=== PATIENT | female | born 1995 | race Caucasian/White ===

== ENCOUNTER 2018-08-13 20:52 | Emergency (ER) | payer OTHER ==
[~2018-08-13] VITALS: Ht 157.5 cm; Wt 49.9 kg
[~2018-08-13 20:52] MED LIST: DEPO-PROVER150 MG/M1; SULFAMETHOXAZOL20 ML PO
[2018-08-13 21:05] VITALS: BP 113/72
[2018-08-13] MEDS ORDERED: AMOXICILLIN 50500 MG PO (21:14)
[2018-08-13] MEDS ORDERED: PROAIR HFA8.5 GM INH (21:18)
[2018-08-13] MEDS ORDERED: KEFLEX500 M1 PO ×2 (21:21)
== END 2018-08-13 21:30 | disposition home or self-care (01) ==
LOC: M.ERS 20:52
DX: J02.9 Acute pharyngitis, unspecified (principal); R06.2 Wheezing; Z88.8 Allergy status to other drugs, medicaments and biological substances

== ENCOUNTER 2018-09-18 08:28 | Emergency (ER) | payer OTHER ==
[~2018-09-18] VITALS: Ht 157.5 cm; Wt 50.4 kg
[~2018-09-18 08:28] MED LIST changes: +AMOXICILLIN 50500 MG PO; +KEFLEX500 M1 PO; +PROAIR HFA8.5 GM INH
[2018-09-18 08:46] LABS: ABSOLUTE EOSINOPHILS 0.1 thou/uL (0.0-0.7); ABSOLUTE LYMPHOCYTES 1.8 thou/uL (0.8-5.3); ABSOLUTE MONOCYTES 0.6 thou/uL (0.0-1.2); BASOPHILS 0.6 %; EOSINOPHILS 1.6 %; HEMATOCRIT 40.8 % (37.0-47.0); HEMOGLOBIN 13.7 gm/dL (12.0-15.0); MCH 28.3 pg (26.0-34.0); MCHC 33.7 g/dL (28.0-37.0); MCV 84.1 fL (80.0-100.0); MONOCYTES 9.2 %; MPV 7.7 fl. (7.2-11.1); NUCLEATED RBCS 0 /100WBC; PLATELET COUNT* 256 thou/uL (150-400); POLYS 60.6 %; RBC 4.85 mil/uL (4.20-5.00); RDW-CV 14.5 % (10.5-14.5); WBC 6.6 thou/uL (4.0-11.0)
[2018-09-18 09:09] LABS: CALCIUM 8.8 mg/dL (8.5-10.1); CREATININE 0.7 mg/dL (0.6-1.3); POTASSIUM 3.8 mmol/L (3.5-5.1)
[2018-09-18 09:15] LABS: ALBUMIN 3.8 g/dL (3.4-5.0); TOTAL BILIRUBIN 0.9 mg/dL (<0.1-1.0); TOTAL PROTEIN 7.5 g/dL (6.4-8.2)
[2018-09-18 09:37] VITALS: BP 110/60
--- NOTE | 2018-09-18 18:08 | EKG ---
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
== END 2018-09-18 09:38 | disposition home or self-care (01) ==
LOC: M.ERS 08:28
PROVIDERS: Family Medicine
DX: O26.899 Other specified pregnancy related conditions, unspecified trimester (principal); R07.89 Other chest pain; Z3A.00 Weeks of gestation of pregnancy not specified; Z88.8 Allergy status to other drugs, medicaments and biological substances

== ENCOUNTER 2019-10-31 20:44 | Emergency (ER) | payer OTHER ==
[~2019-10-31] VITALS: Ht 157.5 cm; Wt 52.2 kg
[2019-10-31] MEDS ORDERED: ZOFRAN ODT4 MG PO (21:48)
[2019-10-31 22:05] VITALS: BP 120/79
== END 2019-10-31 22:06 | disposition home or self-care (01) ==
LOC: M.ERS 20:44
DX: A08.4 Viral intestinal infection, unspecified (principal)

== ENCOUNTER 2019-11-13 15:56 | Emergency (ER) | payer OTHER ==
[~2019-11-13] VITALS: Ht 157.5 cm; Wt 50.8 kg
[~2019-11-13 15:56] MED LIST changes: +ZOFRAN ODT4 MG PO
[2019-11-13 16:34] VITALS: BP 112/79
--- NOTE | 2019-11-14 16:44 | EKG ---
[place] [address] ELECTROCARDIOGRAM REPORT Name: TERESA SLOAN Room: 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 : 1995 Requested By: Maria Elena Neville Order Number: [id number] Chantel MD: Benja Covington Measurements Intervals [place] Rate: 107 P: 90 SC: 154 QRS: 71 QRSD: 78 T: 68 QT: 346 QTc: 462 Interpretive Statements Sinus tachycardia Consider left atrial enlargement Low voltage, precordial leads Compared to ECG 09/18/2018 08:33:42 Low QRS voltage now present Electronically Signed On 11-14-2019 16:43:25 CDT by Benja Covington [email or web address] <ELECTRONICALLY SIGNED> By: Benja Covington MD, [facility] 11/14/19 1643 1609 1609 Benja Covington MD, [facility] /EPI
== END 2019-11-13 23:35 | disposition left against medical advice (07) ==
LOC: M.ERS 15:56
DX: R11.2 Nausea with vomiting, unspecified (principal); R07.9 Chest pain, unspecified; Z53.21 Procedure and treatment not carried out due to patient leaving prior to being seen by health care provider

== ENCOUNTER 2020-01-25 01:24 | Emergency (ER) | payer OTHER ==
[~2020-01-25] VITALS: Ht 157.5 cm; Wt 49.9 kg
[2020-01-25] MEDS ORDERED: XANAX 0.5 MG0.5 MG PO (01:40)
[2020-01-25 01:44] LABS: ABSOLUTE EOSINOPHILS 0.1 thou/uL (0.0-0.7); ABSOLUTE MONOCYTES 0.9 thou/uL (0.0-1.2); ABSOLUTE NEUTROPHILS 7.2 thou/uL (1.6-8.1); BASOPHILS 0.4 %; EOSINOPHILS 0.8 %; HEMOGLOBIN 12.8 gm/dL (12.0-15.0); LYMPHOCYTES 19.2 %; MCH 25.8 pg (26.0-34.0); MCHC 32.7 g/dL (28.0-37.0); MCV 78.9 fL (80.0-100.0); MONOCYTES 9.1 %; MPV 7.6 fl. (7.2-11.1); NUCLEATED RBCS 0 /100WBC; PLATELET COUNT* 334 thou/uL (150-400); POLYS 70.5 %; RBC 4.94 mil/uL (4.20-5.00); RDW-CV 15.1 % (10.5-14.5); WBC 10.2 thou/uL (4.0-11.0)
[2020-01-25 01:55] LABS: CALCIUM 8.6 mg/dL (8.5-10.1); CREATININE 1.1 mg/dL (0.6-1.3); POTASSIUM 3.5 mmol/L (3.5-5.1)
[2020-01-25 02:00] LABS: URINE BILIRUBIN NEGATIVE (Negative); URINE BLOOD NEGATIVE (Negative); URINE CLARITY CLEAR; URINE COLOR YELLOW; URINE GLUCOSE-RANDOM NEGATIVE (Negative); URINE KETONES NEGATIVE (Negative); URINE LEUKOCYTES-REFLEX 1+ (Negative); URINE NITRITE-REFLEX NEGATIVE (Negative); URINE PROTEIN NEGATIVE (Negative); URINE UROBILINOGEN 0.2 E.U./dl (0.2-1.0)
[2020-01-25 02:02] LABS: ALBUMIN 4.4 g/dL (3.4-5.0); TOTAL BILIRUBIN 1.1 mg/dL (<0.1-1.0); TOTAL PROTEIN 8.2 g/dL (6.4-8.2)
[2020-01-25 02:06] LABS: ACETAMINOPHEN < 2 ug/mL (10-30); ALCOHOL < 10 mg/dL (<10); SALICYLATE < 2.8 mg/dL (2.8-20.0)
[2020-01-25 02:07] LABS: AMP/METHAMP Negative (Negative); BARBITURATES Negative (Negative); BENZODIAZEPINES POSITIVE (Negative); COCAINE Negative (Negative); METHADONE Negative (Negative); OPIATES Negative (Negative); PCP Negative (Negative); THC POSITIVE (Negative)
[2020-01-25 02:20] LABS: SQUAMOUS >10 Many /LPF (0-3)
[2020-01-25 02:21] LABS: BACTERIA-REFLEX 1-9 Few /HPF (None Seen); CRYSTALS None Seen /LPF (None Seen); HYALINE CASTS 0-3 Few /LPF (None Seen); URINE RBC None Seen /HPF (0-2); URINE WBC-REFLEX 6-15 Few /HPF (0-5)
[2020-01-25 03:32] VITALS: BP 113/71
== END 2020-01-25 03:47 | disposition home or self-care (01) ==
LOC: M.ERS 01:24
PROVIDERS: Family Medicine
DX: F32.2 Major depressive disorder, single episode, severe without psychotic features (principal); R45.4 Irritability and anger

== ENCOUNTER 2020-06-29 14:13 | Emergency (ER) | payer OTHER ==
[~2020-06-29] VITALS: Ht 157.5 cm; Wt 46.7 kg
[~2020-06-29 14:13] MED LIST changes: +XANAX 0.5 MG0.5 MG PO
[2020-06-29] MEDS ORDERED: MOTRIN IB200 M1 PO (14:31)
[2020-06-29 15:35] LABS: INFLUENZA A ANTIGEN Negative (Negative); INFLUENZA B ANTIGEN Negative (Negative)
[2020-06-29 16:02] VITALS: BP 116/68
== END 2020-06-29 16:03 | disposition home or self-care (01) ==
LOC: M.ERS 14:13
PROVIDERS: Nurse Practitioner Family
DX: J98.8 Other specified respiratory disorders (principal); Z20.828 Contact with and (suspected) exposure to other viral communicable diseases